=== PATIENT | male | born 1985 | race Two or more races ===

== ENCOUNTER 2024-06-04 19:21 | Emergency (ER) | payer MEDICAID, SELFPAY ==
--- NOTE | 2024-06-04 19:29 | PD.EDSUICD ---
ED Psych RME/HPI General Stated Complaint: MEDICAL CLEARANCE Time Seen by Provider: 06/04/24 19:27 Arrival date/time: 06/04/24 19:21 Mode of arrival: other (police) Limitations: no limitations RME / HPI RME / HPI Narrative: Patient with no past medical history who attempted to hang himself with his cable. Patient is brought in on 5150 Related Data Allergies Allergy/AdvReac Type Severity Reaction Status Date / Time No Known Allergies Allergy Mild Uncoded 10/21/12 23:20 Review of Systems Review of Systems Systems Reviewed: All systems reviewed, normal except as documented Narrative Review of Systems: Suicidal Constitutional Constitutional: Reports system reviewed and no additional complaints, except as documented and Denies fever(s) Cardiovascular Cardiovascular: Reports system reviewed and no additional complaints, except as documented, Denies chest pain and Reports dyspnea Respiratory Respiratory: Reports system reviewed and no additional complaints, except as documented and Reports dyspnea Gastrointestinal Gastrointestinal: Reports system reviewed and no additional complaints, except as documented, Denies abdominal pain, Denies nausea and Denies vomiting Neurologic Neurologic: Reports system reviewed and no additional complaints, except as documented Past Medical History Social History SMOKING STATUS: Current some day smoker ED Exam General Limitations: Present no limitations General appearance: Present alert and in no apparent distress Head Head exam: Present atraumatic Eye Eye exam: Present normal appearance, PERRL and EOMI ENT ENT exam: Present normal exam, normal oropharynx and mucous membranes moist Neck Neck exam: Present normal inspection, full ROM and trachea midline Chest Chest inspection: Present normal inspection and symmetric chest wall rise Respiratory Respiratory exam: Present normal lung sounds bilaterally Cardiovascular Cardiovascular exam: Present regular rate, normal rhythm and normal heart sounds Abdominal Exam Abdominal exam: Present soft and normal bowel sounds Extremities Exam Extremities exam: Present normal inspection and full ROM Back Exam Back exam: Present normal inspection and full ROM Neurological Exam Neurological exam: Present alert, oriented X3 and CN II-XII intact Psychiatric Psychiatric exam: Present normal affect and normal mood Skin Skin exam: Present warm, dry, intact and normal color Psych Diagnosis Psych Differential Diagnosis: acute psychosis, chronic schizophrenia, suicidal ideation, bipolar disorder, depression, drug-induced psychotic disorder and acute anxiety Discharge Plan Plan Patient condition on transfer: Stable Problem List Clinical Impression: Suicidal ideation Patient/Caregiver Discharge Instructions Print Language: Portuguese
[2024-06-04 19:43] VITALS: BMI 22.4
--- NOTE | 2024-06-04 19:52 | EDNOTE_ITS ---
<Statement entered by Caitlin Riley MD - 06/15/24 18:12> As co-signing physician, I was present and available for consult prn. I concur with the plan and care as documented by the midlevel provider. ED General RME/HPI General Chief complaint: Suicidal Stated complaint: HOLD 5150 Time Seen by Provider: 06/04/24 19:27 Arrival date/time: 06/04/24 19:21 CC: 5150 HPI patient please officer with the patient states the patient was observed on camera trying to hang himself with a rope. Patient denies suicidal ideation homicidal ideation visual or auditory hallucination. Has no physical pain no medicines and no allergies. Mode of arrival: other (police) Limitations: no limitations RME / HPI RME / HPI narrative: Patient with no past medical history who attempted to hang himself with his cable. Patient is brought in on 5150 Related Data Home Medications ?Medication ?Instructions ?Recorded ?Confirmed No Known Home Medications 06/05/24 06/05/24 Allergies Allergy/AdvReac Type Severity Reaction Status Date / Time No Known Allergies Allergy Mild Uncoded 10/21/12 23:20 Review of Systems Review of Systems Narrative Review of Systems: GEN: No fever, no chills, no weight loss EYES: No discharge, no visual changes, no pain HEENT: No ear pain, no congestion, no sore throat PULM: No shortness of breath, no cough, no congestion CV: No chest pain, no dyspnea on exertion, no palpitations GI: No nausea, no vomiting, no diarrhea, no pain, no constipation : No frequency, no urgency, no dysuria MUSC/SKEL: No joint pain, no back pain SKIN: No rash PSYCH: No hallucinations, no depression HEME/LYMPH: No easy bleeding or bruising tendencies NEURO: No weakness, no headache Past Medical History Social History SMOKING STATUS: Never smoker ED Exam Narrative Physical exam: [General: Appears not in any acute distress Head normocephalic HEENT: Within acceptable limits Neck is supple nontender Chest equal chest rise nontender to palpation Respiratory: Clear to auscultation no wheezes crackles or rubs CV: Rate rhythm is regular no murmurs rubs or clicks Abdomen is soft nontender no masses positive bowel sounds all 4 quadrants Back: No CVA tenderness no spinous process tenderness from cervical spine thoracic and lumbar spine Skin: Intact no petechiae rash induration ulceration or crepitus Extremities: Moving all extremity against resistance cap refill less than 2 seconds neurosensory intact Neuro: Awake alert oriented x3 Glascow coma 15 no focal deficits] General Limitations: Present no limitations General appearance: Present alert and in no apparent distress Course Quality Measures VTE prophylaxis Orders Category Date Time Status Consult Seismic Interpreter X1 Care 06/04/24 23:37 Completed Diet Regular Diet 06/05/24 Breakfast Active Acetaminophen Stat Lab 06/04/24 19:51 Completed Alcohol, Blood Medical Stat Lab 06/04/24 19:51 Completed CBC Stat Lab 06/05/24 07:45 Completed CMP [Comprehensive Metabolic Panel] Stat Lab 06/04/24 19:51 Completed Drug Screen,Urine Stat Lab 06/04/24 20:08 Completed Vital Signs Vital signs: Vital Signs Temperature 98.7 F 06/04/24 20:48 Pulse Rate 86 06/04/24 20:48 Respiratory Rate 18 06/04/24 20:48 Blood Pressure 142/67 H 06/04/24 20:48 Pulse Oximetry (%) 99 06/04/24 20:48 Oxygen Delivery Method Room Air 06/04/24 20:48 MDM Patient data External records reviewed:: [facility] previous records and EMS form Clinical information provided by:: EMS Social determinants that could affect healthcare access:: none Patient has the following chronic illnesses:: Suicidal ideation How is presenting disease/condition affected by chronic disease/condition?: u neffected by Evaluation data The following diagnostics were reviewed and interpreted by me:: lab results Lab and/or radiology exams considered but not ordered:: Cleared for mental evaluation Interpretation Summary: Suicidal ideation Medications Medications considered but not ordered:: None Medication administrations:: None Consultations Consultation(s) initiated? (list below): No Diagnosis Differential Diagnosis ED Complaint MDM: Suicidal ideation suicide attempt homicidal ideation Most likely diagnosis given after review of the tests above:: Suicidal ideation Admission Indicated Admission indicated?: indicated Explain why admission is indicated or not indicated:: Transfer Admission Request Was there a request for admission?: No Disposition Plan Disposition Plan: Transfer Medical Decision Making Differential Diagnosis Differential Diagnosis: Suicidal ideation suicide attempt homicidal ideation Lab Data 06/05/24 07:45 06/04/24 19:51 Labs: Lab Results 06/04/24 06/04/24 06/05/24 Range/Units 19:51 20:08 07:45 WBC 7.1 (3.8-10.6) Thou/mm3 RBC 4.61 (4.50-5.90) Miln/mm3 Hgb 14.9 (13.5-16.0) g/dL Hct 43.3 (41.0-53.0) % MCV 94 (80-100) fL MCH 32.3 (25.0-35.0) pg MCHC 34.4 (31.0-37.0) g/dl RDW Std Deviation 43.4 (35.1-43.9) fL Plt Count 260 (140-440) Thou/mm3 Neut % (Auto) 56 (37-80) % Lymph % (Auto) 30 (10-50) % [place] % (Auto) 8 (0-12) % Eos % (Auto) 5 (0-10) % Baso % (Auto) 1 (0-2.5) % Neut # (Auto) 4.0 (1.8-7.7) Thou/mm3 Lymph # (Auto) 2.2 (1.0-4.8) Thou/mm3 [place] # (Auto) 0.6 (0.0-0.8) Thou/mm3 Eos # (Auto) 0.3 (0.0-0.5) Thou/mm3 Baso # (Auto) 0.1 (0.0-0.2) Thou/mm3 Immature Gran # (Auto) 0.01 H (0.00-0.00) Thou/mm3 Absolute Nucleated RBC 0.00 (0.00-0.00) Thou/mm3 Immature Gran % 0 (0-0) % Nucleated RBC % 0 (0) /100 WBC Sodium 142 (136-145) mMol/L Potassium 5.4 H (3.4-5.1) mMol/L Chloride 106 (98-107) mMol/L Carbon Dioxide 28.8 (20.0-31.0) mMol/L Anion Gap 7 (7-16) BUN 17 (9-23) mg/dL Creatinine 0.9 (0.6-1.3) mg/dL Estim Creat Clear Calc 111.0 (>60) mL/min eGFR > 60 (60 - ) See Note BUN/Creatinine Ratio 19 (12-20) Ratio Glucose 103 (74-106) mg/dL Calculated Osmolality 284 (275-295) Calcium 10.5 (8.3-10.6) mg/dL Corrected Calcium 10.5 H (8.5-10.1) mg/dL Total Bilirubin 0.9 (0.3-1.2) mg/dL AST 22 (0-34) U/L ALT 18 (10-49) U/L Alkaline Phosphatase 70 (46-116) U/L Total Protein 7.5 (5.7-8.2) gm/dL Albumin 5.0 (3.5-5.0) gm/dL Globulin 2.5 (2.3-3.5) gm/dL Albumin/Globulin Ratio 2.0 (1.2-2.2) Urine Opiates Screen Negative (Negative) Urine Fentanyl Screen Negative (Negative) Acetaminophen < 2.0 L (10.0-20.0) mcg/mL Ur Barbiturates Screen Negative (Negative) U Amphetamin/Meth Scrn Negative (Negative) U Benzodiazepines Scrn Negative (Negative) U Cocaine Metab Screen Negative (Negative) U Marijuana (THC) Screen Positive A (Negative) Ethyl Alcohol < 3.0 (0-10.0) mg/dL Discharge Plan Plan Patient Disposition: [facility] Facility Disposition Comment: co to [place] Patient condition on transfer: Stable Prescriptions/Referrals Prescriptions/Med Rec: No Action No Known Home Medications Problem List Clinical Impression: Suicidal ideation Patient/Caregiver Discharge Instructions Print Language: Malay Stand Alone Forms: Christi Award Info., Patient Portal Info Letter MICHAEL/ANGEL Supervising Physician MICHAEL/ANGEL Supervising Physician: Zac Parnell ENP
[2024-06-04 20:40] LABS: Acetaminophen < 2.0 mcg/mL (10.0-20.0); Alanine Aminotransferase 18 U/L (10-49); Alcohol, Blood Medical < 3.0 mg/dL (0-10.0); Alkaline Phosphatase 70 U/L (46-116); Anion Gap 7 (7-16); Aspartate Amino Transferase 22 U/L (0-34); BUN/Creatinine Ratio 19 Ratio (12-20); Bilirubin,Total 0.9 mg/dL (0.3-1.2); Blood Urea Nitrogen 17 mg/dL (9-23); Calcium 10.5 mg/dL (8.3-10.6); Calcium (Corrected) 10.5 mg/dL (8.5-10.1); Carbon Dioxide 28.8 mMol/L (20.0-31.0); Chloride 106 mMol/L (98-107); Creatinine (Component) 0.9 mg/dL (0.6-1.3); Globulin 2.5 gm/dL (2.3-3.5); Glucose 103 mg/dL (74-106); Osmolality,Calculated 284 (275-295); Potassium 5.4 mMol/L (3.4-5.1); Sodium 142 mMol/L (136-145); Total Protein 7.5 gm/dL (5.7-8.2); eGFR > 60 See Note
--- NOTE | 2024-06-04 20:40 | PC.NURSE ---
PT BIB [facility] ON A 5150 HOLD. PER [facility] CALLED OUT STATING PT WAS MAKING SI AND ATTEMPTING TO HANG HIMSELF IN AN ATTEMPT TO HARM SELF. PER [facility], PROVIDED LAW ENFORCEMENT WITH VIDEO OF PT ATTEMPTED TO HANG HIMSELF. PT ARRIVED TO ER COOPERATIVE. DENIES ANY VISUAL OF AUDITORY HALLUCINATIONS. PT PLACED IN ROOM AND AND SUICIDAL PRECAUTION IN PLACE. SITTER AT BED SIDE.
[2024-06-04 20:48] VITALS: BP 142/67; PULSE 86; RESP 18; TEMP 37.1; O2SAT 99
[2024-06-04 21:01] LABS: Amphetamine/Methamp Scrn,U Negative (Negative); Barbiturate Screen,Urine Negative (Negative); Benzodiazepines Screen,Urine Negative (Negative); Benzoylecgonine Screen, Ur Negative (Negative); Fentanyl Screen,Urine Negative (Negative); Opiate Screen,Urine Negative (Negative); THC Screen,Urine Positive (Negative)
--- NOTE | 2024-06-04 23:37 | PD.EDADDENDU ---
Emergency Room Addendum Addendum Narrative: 2030: Care assumed from Zac Parnell NP. Past medical, surgical, social and family history reviewed. Vitals and home medications reviewed. Results and treatment plan discussed. I will assume the care of the patient at this time and will follow the patient, pending medical clearance for crisis evaluation. Please refer to the emergency department record for history and examination from initial visit. 2338: Patient is medically clear for crisis evaluation. OBSERVATION NOTE: The patient was placed in ED observation care at 06/04/24 at 2338 hours. The patient was placed in ED observation care because of pending psychiatric evaluation. The patients past medical history, social history, and family history were reviewed. The plan of care will include serial examinations. 0600: Care signed out to Dr. Riley (emergency physician). Past medical, surgical, social and family history reviewed. Vitals and home medications reviewed. Results and treatment plan discussed. They will assume the care of the patient at this time and will follow the patient, pending crisis evaluation. At this time, observation has ended.
[2024-06-05 00:23] VITALS: BP 145/87; PULSE 72; RESP 72; TEMP 36.7; O2SAT 97
[2024-06-05 06:19] VITALS: BP 128/85; PULSE 70; RESP 18; TEMP 36.9; O2SAT 98
--- NOTE | 2024-06-05 06:51 | EDNOTE_ITS ---
Emergency Room Addendum Addendum Narrative: 0600: Care assumed from Dr. Flannery, the previous shift emergency physician. Past medical, surgical, social and family history reviewed. Vitals and home medications reviewed. Results and treatment plan discussed. The patient was placed in ED observation care at 0600 06/05/2024, pending mental health evaluation. Please refer to the emergency department record for history and examination.? While in ED observation the pt will have access to water, food, and personal hygiene. If the pt takes home medication(s), they will be continued in ED observation. Patient has been accepted for transfer by Dr. Melara at [facility]. 1225: EMS here to transfer patient. Observation care completed at this time.
[2024-06-05 07:21] VITALS: BP 130/71; PULSE 71; RESP 18; TEMP 36.8; O2SAT 98
[2024-06-05 08:00] LABS: Basophils # (Auto) 0.1 Thou/mm3 (0.0-0.2); Basophils % (Auto) 1 % (0-2.5); Eosinophils # (Auto) 0.3 Thou/mm3 (0.0-0.5); Eosinophils % (Auto) 5 % (0-10); Hematocrit 43.3 % (41.0-53.0); Hemoglobin 14.9 g/dL (13.5-16.0); Immature Granulocytes % (Auto) 0 % (0-0); Immature Granulocytes Auto 0.01 Thou/mm3 (0.00-0.00); Lymphocytes # (Auto) 2.2 Thou/mm3 (1.0-4.8); Lymphocytes % (Auto) 30 % (10-50); Mean Corpuscular HGB Conc 34.4 g/dl (31.0-37.0); Mean Corpuscular Hemoglobin 32.3 pg (25.0-35.0); Mean Corpuscular Volume 94 fL (80-100); Monocytes # (Auto) 0.6 Thou/mm3 (0.0-0.8); Monocytes % (Auto) 8 % (0-12); Neutrophils % (Auto) 56 % (37-80); Nucleated Red Blood Cell % 0 /100 WBC (0); Platelet Count 260 Thou/mm3 (140-440); RDW Standard Deviation 43.4 fL (35.1-43.9); Red Blood Count 4.61 Miln/mm3 (4.50-5.90); White Blood Count 7.1 Thou/mm3 (3.8-10.6)
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
[2024-06-05 09:20] VITALS: BP 135/87; PULSE 71; RESP 17; TEMP 36.7; O2SAT 98
--- NOTE | 2024-06-05 09:53 | PC.NURSE ---
SPOKE TO EDOUARD IBANEZ FROM [facility] FOR UPDATE REGARDING PT'S POC FOR POSSIBLE TRANSFER; PER EDOUARD, ACCEPTANCE IS PENDING AT THIS TIME BUT IF PT IS ACCEPTED; HE WILL HE ACCEPTED BY DR. HEALY AND WOULD BE GOING TO UNIT 3 AROUND 1500 TODAY. IF ANYTHING CHANGES, I WILL CALL YOU BACK.
--- NOTE | 2024-06-05 10:23 | PC.CC ---
Freddy with [facility] provided acceptance information by Dr. Melara going into [address]. MASSIELWChata informed patient that he was accepted to [facility]. Transportation arranged for [address] [facility] [address]. Riley, artificial glass eye maker Saundra, and MARCELLE Ibrahim provided with discharge plan to [facility].
--- NOTE | 2024-06-05 10:30 | PC.NURSE ---
SPOKE TO ALLIE RN FROM [facility] FOR SBAR REPORT AND INFORMED ESTIMATED VARNISHER PLASTICOATER AT 1230 TODAY; PER ALLIE, WILL BE READY FOR PT ONCE HE ARRIVES TO OUR FACILITY.
[2024-06-05 10:55] VITALS: BP 133/79; PULSE 73; RESP 15; TEMP 36.8; O2SAT 98
--- NOTE | 2024-06-05 11:50 | PC.NURSE ---
SPOKE TO ARIA DIAMOND ASSORTER FOR REPORT; ARIA HERE NOW FOR PT TRANSPORTATION TO [facility].
== END 2024-06-05 12:27 ==
PROVIDERS: Emergency Medicine; Emergency Provider Emergency Medicine
DX: R45.851 Suicidal ideations (principal)
CPT/HCPCS: 36415; 80053; 80307; 80320; 80329; 85025; 90839; 96127; 99285; G0480

== ENCOUNTER 2024-11-05 07:56 | Emergency (ER) | payer SELFPAY ==
[2024-11-05 08:05] VITALS: BP 138/95; PULSE 92; RESP 18; TEMP 36.9; O2SAT 95
[2024-11-05] MEDS: DiphenhydrAMINE 25 MG CAPSULE PO (08:29)
[2024-11-05] MEDS: FAMOTIDINE 20 MG TABLET PO (08:29)
[2024-11-05] MEDS: DEXAMETHASONE SOD PHOS INJ 10 MG/ML VIAL PO (08:29)
--- NOTE | 2024-11-05 08:29 | EDNOTE_ITS ---
ED Skin Abcess FB-RME/HPI General Chief complaint: Skin/Abscess/Foreign Body Stated complaint: RASH/HIVES OVER WHOLE BODY, STARTED MONDAY Time Seen by Provider: 11/05/24 08:02 Arrival date/time: 11/05/24 07:56 38-year-old male with no significant medical problems presents to the department today for complaints of allergic reaction ongoing since Monday Limitations: no limitations Related Data Previous Rx's ?Medication ?Instructions ?Recorded diphenhydramine HCl 25 mg capsule 25 mg PO Q8H PRN all ergic symptoms 11/05/24 (Benadryl) #30 caps prednisone 10 mg tablet 30 mg (3 x 10 mg) PO BID 3 d ays 11/05/24 #18 tabs Allergies Allergy/AdvReac Type Severity Reaction Status Date / Time No Known Allergies Allergy Mild NO Uncoded 11/05/24 08:00 ALLERGIES Review of Systems Review of Systems Systems Reviewed: All systems reviewed, normal except as documented Constitutional Constitutional: Reports system reviewed and no additional complaints, except as documented, Denies fever(s) and Denies headache(s) Eyes Eyes: Reports system reviewed and no additional complaints, except as documented and Denies blurry vision ENT Ears, Nose, Mouth, and Throat: Reports system reviewed and no additional complaints, except as documented, Denies headache(s), Denies nasal congestion and Denies nasal discharge Cardiovascular Cardiovascular: Reports system reviewed and no additional complaints, except as documented, Denies chest pain and Denies dyspnea Respiratory Respiratory: Reports system reviewed and no additional complaints, except as documented, Denies chest congestion, Denies cough and Denies dyspnea Gastrointestinal Gastrointestinal: Reports system reviewed and no additional complaints, except as documented and Denies abdominal pain Integumentary/Breasts Skin/Breast: Reports system reviewed and no additional complaints, except as documented, Reports pruritus and Reports rash Neurologic Neurologic: Reports system reviewed and no additional complaints, except as documented, Reports as per HPI and Denies headache(s) Past Medical History Past Medical History CARDIAC: Negative Congestive Heart Failure RESPIRATORY: Negative Chronic Obstructive Pulmonary Disease (COPD) GENITOURINARY: Negative Renal Disease ENDOCRINE: Negative Diabetes Mellitus Type 1 or Diabetes Mellitus Type 2 Social History SMOKING STATUS: Current every day smoker ED Exam General Limitations: Present no limitations General appearance: Present alert and in no apparent distress Head Head exam: Present atraumatic, normocephalic and normal inspection Eye Eye exam: Present normal appearance, PERRL and EOMI; Absent conjunctival injection ENT ENT exam: Present normal exam, normal oropharynx and mucous membranes moist Neck Neck exam: Present normal inspection, full ROM and trachea midline Chest Chest inspection: Present normal inspection and symmetric chest wall rise Respiratory Respiratory exam: Present normal lung sounds bilaterally; Absent respiratory distress Cardiovascular Cardiovascular exam: Present regular rate, normal rhythm and normal heart sounds Abdominal Exam Abdominal exam: Present soft and normal bowel sounds; Absent distention or tenderness Extremities Exam Extremities exam: Present normal inspection and full ROM Back Exam Back exam: Present normal inspection and full ROM Neurological Exam Neurological exam: Present alert, oriented X3 and CN II-XII intact Psychiatric Psychiatric exam: Present normal affect and normal mood Skin Skin exam: Present warm, dry, intact and rash Course Quality Measures none Orders Category Date Time Status Dexamethasone Inj [Decadron Inj] Med 11/05/24 08:10 Discontinued 10 mg PO X1 ONE DiphenhydrAMINE [Benadryl] Med 11/05/24 08:10 Discontinued 25 mg PO X1 ONE Famotidine [Pepcid] Med 11/05/24 08:10 Discontinued 20 mg PO X1 ONE Vital Signs Vital signs: Vital Signs Temperature 98.5 F 11/05/24 08:05 Pulse Rate 92 11/05/24 08:05 Respiratory Rate 18 11/05/24 08:05 Blood Pressure 138/95 H 11/05/24 08:05 Pulse Oximetry (%) 95 11/05/24 08:05 Oxygen Delivery Method Room Air 11/05/24 08:05 O2 sats removed 95% room air WNL Skin / Abscess / Foreign Body MDM Narrative MDM Narrative:: 38-year-old male with no significant medical problems presents to the department today for complaints of allergic reaction ongoing since Monday On exam patient well-appearing patient's not appear toxic in no acute distress Patient given medication for rash On exam patient has no evidence of anaphylaxis symptoms consistent with urticaria Patient discharged home in no distress to follow-up with primary care doctor in the next 24 to 48 hours and for any worsening symptoms to return to the ER immediately Patient data External records reviewed:: [facility] previous records Clinical information provided by:: patient Social determinants that could affect healthcare access:: none Patient has the following chronic illnesses:: None How is presenting disease/condition affected by chronic disease/condition?: no chronic disease Evaluation data The following diagnostics were reviewed and interpreted by me:: other (specify) (N/A) Lab and/or radiology exams considered but not ordered:: N/A Interpretation Summary: N/A Medications / Prescriptions Medications or Prescriptions considered but not ordered:: Given Medication administrations:: Medication Administration History Discontinued Medications Dexamethasone Sodium Phosphate (Dexamethasone Sod Phos Inj 10 Mg/Ml Vial) 10 mg PO X1 ONE Stop: 11/05/24 08:11 Diphenhydramine HCl (Diphenhydramine 25 Mg Capsule) 25 mg PO X1 ONE Stop: 11/05/24 08:11 Famotidine (Famotidine 20 Mg Tablet) 20 mg PO X1 ONE Stop: 11/05/24 08:11 Given Consultations Consultation(s) initiated? (list below): No Diagnosis Skin/Abscess Differential Diagnosis: abscess of skin or subcutaneous tissue, viral exanthem, dermatophytosis, urticaria, cellulitis, eczema, insect bites and impetigo Most likely diagnosis given after review of the tests above:: Urticaria Admission Indicated Admission indicated?: not indicated Admission Request Was there a request for admission?: No Disposition Plan Disposition Plan: Discharge Discharge Attestation Discharge Attestation: The patient and all family members were given an opportunity to ask questions and understood the discharge instructions. Discharge instructions specifically effects, indications for sooner follow up or return to the emergency department, and the expected course of current diagnosis. Patient condition: Stable Discharge Plan Plan Patient Disposition: HOME (Self Care) Discharge Disposition comment: Stable Prescriptions/Referrals Prescriptions/Med Rec: New prednisone 10 mg tablet 30 mg PO BID 3 Days Qty: 18 0RF diphenhydramine HCl [Benadryl] 25 mg capsule 25 mg PO Q8H PRN (Reason: allergic symptoms) Qty: 30 0RF Problem List Clinical Impression: Urticaria Patient/Caregiver Discharge Instructions Education Materials: ED Hives (Adult) Additional Instructions: Please follow up with your primary care doctor in the next 24-48hrs for any worsening symptoms return here immediately Print Language: Hebrew Stand Alone Forms: Christi Award Info., Patient Portal Info Letter PA/NEUROPSYCHOLOGY MEDICAL CONSULTANT Supervising Physician PA/NEUROPSYCHOLOGY MEDICAL CONSULTANT Supervising Physician: dr lima
== END 2024-11-05 08:36 | disposition home or self-care (01) ==
LOC: SERX 08:43
PROVIDERS: Emergency Provider Family Medicine
DX: L50.9 Urticaria, unspecified (principal)
CPT/HCPCS: 99282; J1100; A9270